=== PATIENT | male | born 1960 | race Caucasian/White ===

== ENCOUNTER 2018-02-15 23:36 | Emergency (ER) | payer BC ==
[~2018-02-15] VITALS: Ht 177.8 cm; Wt 98.0 kg
[2018-02-15 23:41] VITALS: BP 102/65; PULSE 68; RESP 20; TEMP 97.8; O2SAT 90
--- NOTE | 2018-02-16 00:02 | PD ---
HPI Chief Complaint: Chest pain Time Seen by Provider: 23:53 Travel History International Travel<30 days: No Contact w/Intl Traveler<30days: No Traveled to known affect area: No History of Present Illness HPI The patient is a 57-year-old male who complains of right-sided sharp, pleuritic rib pain of gradual onset over the last 12 hours. In the last 4 hours the pain is gotten much worse and is a 9/10. He denies any cough, fever and it is difficult for him to move or take a deep breath without pain. He feels better sitting upright. He states he has not smoked in 20 years. He denies any nausea , vomiting or diarrhea. He denies any trauma. [facility] Social History Tobacco Use: No Allergies-Medications (Allergen,Severity, Reaction): Coded Allergies: No Known Allergies (Unverified , 02/15/18) Reported Meds & Prescriptions Reported Meds & Active Scripts Active Reported Coq-10 (Coenzyme Q10 (Ubidecarenone)) 50 Mg Cap Multiple Vitamin 1 Tab 1 Tab PO DAILY Fish Oil 1,000 mg Softgel (Viking-3/Dha/Epa/Fish Oil) 1,000 Mg (120 Mg-180 Mg) Capsule Bupropion HCl ER 12 HR (Bupropion HCl) 150 Mg Tab 150 Mg PO BID Fluoxetine (Fluoxetine HCl) 40 Mg Cap 40 Cap PO DAILY Alprazolam 0.25 Mg Tab 0.25 Mg PO Q6H PRN Simvastatin 40 Mg Tab 40 Mg PO HS Omeprazole 20 Mg Tab 20 Mg PO DAILY Atenolol 25 Mg Tab 25 Mg PO DAILY Bupropion HCl 100 Mg Tab 150 Mg PO BID Seroquel (Quetiapine Fumarate) 200 Mg Tab 250 Mg PO HS Review of Systems Except as stated in HPI: all other systems reviewed are Neg Physical Exam Narrative GENERAL: The patient is alert, oriented 3 in moderate to severe distress with his right pleuritic chest pain. His vital signs show blood pressure 102/65. The patient has oximetry of 93-94% on room air. SKIN: Focused skin assessment warm/dry. No skin rashes noted over the area of pain or anywhere else. HEAD: Atraumatic. Normocephalic. EYES: Pupils equal and round. No scleral icterus. No injection or drainage. ENT: No nasal bleeding or discharge. Mucous membranes pink and moist. NECK: Trachea midline. No JVD. CARDIOVASCULAR: Regular rate and rhythm. No murmur appreciated. RESPIRATORY: No accessory muscle use. Clear to auscultation. Breath sounds are minimal below the area of pain on the right. That is below approximate level of T6 in the midaxillary line. Breath sounds are normal on the left and above T6 on the right. The patient has point tenderness on the 6 rib on the right. No crepitus, neither bony nor air is noted. GASTROINTESTINAL: Abdomen soft, non-tender, nondistended. Hepatic and splenic margins not palpable. MUSCULOSKELETAL: No obvious deformities. No clubbing. No cyanosis. No edema. NEUROLOGICAL: Awake and alert. No obvious cranial nerve deficits. Motor grossly within normal limits. Normal speech. PSYCHIATRIC: Appropriate mood and affect; insight and judgment normal. Data Data Last Documented VS Vital Signs Date Time Temp Pulse Resp B/P (MAP) Pulse Ox O2 Delivery O2 Flow Rate FiO2 02/16/18 02:03 73 14 100/62 (75) 95 Room Air 02/16/18 00:10 2.00 02/15/18 23:41 97.8 Orders Orders Chest, Pa & Lat (02/15/18 23:53) Morphine Inj (Morphine Inj) (02/16/18 00:30) Ct Thorax/ Chest W Iv Contrast (02/16/18 00:28) Complete Blood Count With Diff (02/16/18 00:29) Comprehensive Metabolic Panel (02/16/18 00:29) Iohexol 350 Inj (Omnipaque 350 Inj) (02/16/18 01:31) Labs Laboratory Tests Test 02/16/18 00:36 White Blood Count 9.3 TH/MM3 Red Blood Count 4.87 MIL/MM3 Hemoglobin 15.2 GM/DL Hematocrit 44.9 % Mean Corpuscular Volume 92.2 FL Mean Corpuscular Hemoglobin 31.2 PG Mean Corpuscular Hemoglobin Concent 33.9 % Red Cell Distribution Width 12.1 % Platelet Count 237 TH/MM3 Mean Platelet Volume 8.4 FL Neutrophils (%) (Auto) 53.1 % Lymphocytes (%) (Auto) 33.8 % Monocytes (%) (Auto) 11.3 % Eosinophils (%) (Auto) 1.4 % Basophils (%) (Auto) 0.4 % Neutrophils # (Auto) 5.1 TH/MM3 Lymphocytes # (Auto) 3.1 TH/MM3 Monocytes # (Auto) 1.0 TH/MM3 Eosinophils # (Auto) 0.1 TH/MM3 Basophils # (Auto) 0.0 TH/MM3 CBC Comment DIFF FINAL Differential Comment Blood Urea Nitrogen 17 MG/DL Creatinine 1.40 MG/DL Random Glucose 113 MG/DL Total Protein 7.4 GM/DL Albumin 3.7 GM/DL Calcium Level 8.4 MG/DL Alkaline Phosphatase 83 U/L Aspartate Amino Transf (AST/SGOT) 29 U/L Alanine Aminotransferase (ALT/SGPT) 34 U/L Total Bilirubin 0.2 MG/DL Sodium Level 137 MEQ/L Potassium Level 3.9 MEQ/L Chloride Level 103 MEQ/L Carbon Dioxide Level 30.3 MEQ/L Anion Gap 4 MEQ/L Estimat Glomerular Filtration Rate 53 ML/MIN MDM Medical Decision Making Medical Screen Exam Complete: Yes Emergency Medical Condition: Yes Medical Record Reviewed: Yes Interpretation(s) The CT of the thorax shows mild by basilar atelectasis, trace pleural effusion on the right and no fracture or other abnormality visualized to explain the patient's pain. Incidentally noted is mild scoliosis and degenerative changes of the spine. The chest x-ray shows mild by basilar atelectasis. The basic metabolic profile shows a creatinine of 1.4, GFR 53, calcium of 8.4 but is otherwise unremarkable. The CBC is normal. Differential Diagnosis Right pleural effusion, pneumothorax, fracture rib, herpes zoster, pneumonia Narrative Course The patient has point tenderness on the right sixth rib. No fracture is noted on either the chest x-ray or the CT scan. A small pleural effusion is noted on the right. The patient consistently has oximetry of 93-94% on room air and states he feels comfortable going home. Diagnosis Primary Impression: Fractured rib Additional Impressions: Atelectasis of right lung Pleural effusion, right Additional Instructions: As we discussed, do not drink alcohol or drive on the Percocet 5. Follow-up with her primary care physician. Cough and deep breathe to make sure your lungs cleaning themselves out. Med/Other Pt SpecificInfo: Prescription(s) given Scripts Oxycodone-Acetaminophen (Percocet) 5-325 mg Tab 1-2 TAB PO Q4H Y for PAIN, #20 TAB 0 Refills Prov: Nain Aponte MD 02/16/18 Disposition: 01 DISCHARGE HOME Condition: Stable Nain Aponte MD Feb 16, 2018 00:02
--- NOTE | 2018-02-16 00:29 | RADRPT ---
EXAM DATE/TIME: 02/16/2018 00:00 [facility] COMPARISON: No previous studies available for comparison. INDICATIONS : Chest pain. MEDICAL HISTORY : None. SURGICAL HISTORY : None. ENCOUNTER: Initial ACUITY: 1 day PAIN SCORE: 5/10 LOCATION: Bilateral chest FINDINGS: There is mild bibasilar atelectasis. Lungs are hyperexpanded. No pleural effusion seen. No pneumothor ax. Heart size within normal limits. CONCLUSION: Mild bibasilar atelectasis. Tone Eid MD on February 16, 2018 at 0:27 Board Certified Radiologist. This report was verified electronically.
[2018-02-16] MEDS ORDERED: SERO200T PO (00:30)
[2018-02-16] MEDS ORDERED: MORPHINE SULFATE 4 MG/ML INJ IV PUSH ONE (00:30)
[2018-02-16] MEDS ORDERED: BUPR100T4 PO (00:36)
[2018-02-16] MEDS ORDERED: BUPR150T5 PO (00:36)
[2018-02-16] MEDS ORDERED: SIMV40TA PO (00:36)
[2018-02-16] MEDS ORDERED: COQ-50CA2 (00:36)
[2018-02-16] MEDS ORDERED: FLUO40CA PO (00:36)
[2018-02-16] MEDS ORDERED: OMEG100046 (00:36)
[2018-02-16] MEDS ORDERED: MULTTAB67 PO (00:36)
[2018-02-16] MEDS ORDERED: ATEN25TA PO (00:36)
[2018-02-16] MEDS ORDERED: OMEP20TA93 PO (00:36)
[2018-02-16] MEDS ORDERED: ALPR0.25 PO (00:36)
[2018-02-16 00:53] LABS: AUTOMATED NEUTROPHIL # 5.1 TH/MM3 (1.8-7.7); BASOPHIL % 0.4 % (0.0-2.0); EOSINOPHIL # 0.1 TH/MM3 (0-0.4); EOSINOPHIL % 1.4 % (0.0-4.0); HEMATOCRIT 44.9 % (39.0-51.0); HEMOGLOBIN 15.2 GM/DL (13.0-17.0); LYMPH % 33.8 % (9.0-44.0); LYMPHOCYTE # 3.1 TH/MM3 (1.0-4.8); MEAN CELL VOLUME 92.2 FL (80.0-100.0); MEAN CORPUSCULAR HEMOGLOBIN 31.2 PG (27.0-34.0); MEAN CORPUSCULAR HGB CONC 33.9 % (32.0-36.0); MEAN PLATELET VOLUME 8.4 FL (7.0-11.0); MONO % 11.3 % (0.0-8.0); NEUT % 53.1 % (16.0-70.0); PLATELET COUNT 237 TH/MM3 (150-450); RED BLOOD COUNT 4.87 MIL/MM3 (4.50-5.90); RED CELL DISTRIBUTION WIDTH 12.1 % (11.6-17.2); WHITE BLOOD COUNT 9.3 TH/MM3 (4.0-11.0)
[2018-02-16 01:01] LABS: CHLORIDE 103 MEQ/L (98-107); SODIUM (NA) 137 MEQ/L (136-145)
[2018-02-16 01:04] LABS: ALBUMIN 3.7 GM/DL (3.4-5.0); BICARBONATE 30.3 MEQ/L (21.0-32.0); CALCIUM 8.4 MG/DL (8.5-10.1)
[2018-02-16 01:05] LABS: BLOOD UREA NITROGEN 17 MG/DL (7-18); GLUCOSE,RANDOM 113 MG/DL (74-106)
[2018-02-16 01:07] LABS: ALT (GPT) 34 U/L (12-78)
[2018-02-16 01:08] LABS: AST (GOT) 29 U/L (15-37); GLOMERULAR FILTRATION RATE 53 ML/MIN (>89)
[2018-02-16 01:09] LABS: TOTAL BILIRUBIN ADULT 0.2 MG/DL (0.2-1.0); TOTAL PROTEIN 7.4 GM/DL (6.4-8.2)
[2018-02-16 01:10] LABS: ALKALINE PHOSPHATASE 83 U/L (45-117)
[2018-02-16] MEDS ORDERED: IOHEXOL 350 MG/ML 10 ML VIAL (for RAD DIAG) IVCONTRAST ONE (01:31)
--- NOTE | 2018-02-16 01:40 | RADRPT ---
EXAM DATE/TIME: 02/16/2018 01:15 [facility] COMPARISON: CHEST PA & LAT, February 16, 2018, 0:00. INDICATIONS : Right rib pain. Difficulty breathing. IV CONTRAST: 75 cc Omnipaque 350 (iohexol) IV RADIATION DOSE: 16.02 CTDIvol (mGy) MEDICAL HISTORY : Cardiovascular disease. SURGICAL HISTORY : None. ENCOUNTER: Initial ACUITY: 1 day PAIN SCALE: 6/10 LOCATION: Right chest TECHNIQUE: Volumetric scanning of the chest was performed. Using automated exposure control and adjustment of t he mA and/or kV according to patient size, radiation dose was kept as low as reasonably achievable to obtain optimal diagnostic quality images. DICOM format image data is available electronically for review and comparison. Follow-up recommendations for detected pulmonary nodules are based at a minimum on nodule size and pa tient risk factors according to Fleischner Society Guidelines. FINDINGS: There is dependent atelectasis of both bases. Trace pleural fluid seen on the right. The lungs are ot herwise clear. There is no pneumothorax. Heart size within normal limits. No lymphadenopathy. No acute abnormality seen of the visualized osse ous structures or upper abdomen. There is mild S. shaped curvature of the thoracolumbar spine. Mild d isc centered thoracic spine degenerative changes with anterior and lateral osseous ridging at most le vels noted. CONCLUSION: 1. Mild bibasilar atelectasis. 2. Trace pleural effusion on the right. 3. No fracture or other acute abnormality of the visualized osseous structures. Mild scoliosis and de generative changes of the spine. Tone Eid MD on February 16, 2018 at 1:35 Board Certified Radiologist. This report was verified electronically.
[2018-02-16 02:03] VITALS: BP 100/62; PULSE 73; RESP 14; O2SAT 95
[2018-02-16] MEDS ORDERED: PERC5TAB12 PO (02:19)
[2018-02-16 02:28] VITALS: BP 100/60
== END 2018-02-16 02:48 | disposition home or self-care (01) ==
LOC: PHED 23:36
DX: S22.39XA Fracture of one rib, unspecified side, initial encounter for closed fracture (principal); J98.11 Atelectasis; J90 Pleural effusion, not elsewhere classified; Z87.891 Personal history of nicotine dependence
CPT/HCPCS: 71046; 71260; 80053; 85025; 94150; 96374; 99285; J2270; Q9967